=== PATIENT | male | born 1955 | race Caucasian/White ===

== ENCOUNTER → 2016-11-17 | Outpatient (CLI) | payer OTHER | DX: E78.2 Mixed hyperlipidemia (principal); Z12.5 Encounter for screening for malignant neoplasm of prostate ==

== ENCOUNTER 2017-05-04 08:03 | Outpatient (CLI) | payer OTHER | END 2017-05-04 08:04 | disposition home or self-care (01) | LOC: LAB.R 08:03 | PROVIDERS: ATTEND Internal Medicine | DX: E78.2 Mixed hyperlipidemia (principal) ==

== ENCOUNTER 2017-07-29 13:03 | Outpatient (CLI) | payer OTHER | END 2017-07-29 13:04 | disposition home or self-care (01) | LOC: LAB.R 13:03 | PROVIDERS: ATTEND Internal Medicine | DX: E78.2 Mixed hyperlipidemia (principal) ==

== ENCOUNTER 2017-12-14 08:00 | Outpatient (CLI) | payer OTHER ==
[2017-12-14 14:37] LABS: ALBUMIN 4.3 g/dL (3.2-5.5); ALBUMIN/GLOBULIN RATIO 1.5 (1.0-2.2); ALKALINE PHOSPHATASE 68 IU/L (42-121); ALT ALANINE AMINOTRANSFERASE 25 IU/L (10-60); AST ASPARTATE AMINOTRANSFERASE 26 IU/L (10-42); BILIRUBIN,TOTAL 1.3 mg/dL (0.2-1.0); BUN - BLOOD UREA NITROGEN 16 mg/dL (6-20); CALCIUM 9.1 mg/dL (8.5-10.3); CARBON DIOXIDE - CO2 25 mmol/L (21-32); CHLORIDE 99 mmol/L (101-111); CHOL/HDL RATIO 4.6 (<5.0); CHOLESTEROL 189 mg/dL; CREATININE 0.9 mg/dL (0.6-1.2); GFR - MDRD 85 (>89); GLUCOSE 99 mg/dL (70-100); HDL CHOLESTEROL 41 mg/dL; LDL CHOLESTEROL,CALCULATED 127 mg/dL; LDL/HDL RATIO 3.1 (<3.6); SODIUM 134 mmol/L (135-145); TOTAL PROTEIN 7.1 g/dL (6.7-8.2); VLDL CHOLESTEROL 21 mg/dL
== END 2017-12-14 08:01 | disposition home or self-care (01) ==
LOC: LAB.R 08:00
PROVIDERS: ATTEND Internal Medicine
DX: E78.2 Mixed hyperlipidemia (principal)
CPT/HCPCS: 80053; 80061; 83721; 84153

== ENCOUNTER 2019-05-04 10:34 | Outpatient (CLI) | payer MEDICARE, OTHER | END 2019-05-04 10:35 | disposition home or self-care (01) | LOC: LAB 10:34 | PROVIDERS: ATTEND Internal Medicine | DX: R05 Cough (principal); R50.9 Fever, unspecified | CPT/HCPCS: 36415; 87040 ==

== ENCOUNTER 2019-05-04 10:54 | Outpatient (CLI) | payer MEDICARE, OTHER ==
--- NOTE | 2019-05-04 16:06 | XRAY Report ---
Reason: FEVER, COUGH, R/O PNEUMONIA Procedure Date: 05/04/2019 Accession Number: [id number] / [id number] Procedure: XR - Chest 2 View X-Ray CPT Code: 79151 FULL RESULT: EXAM: CHEST RADIOGRAPHY. EXAM DATE: 05/04/2019 11:58 AM. CLINICAL HISTORY: Fever, cough, rule out pneumonia. COMPARISON: XR CHEST PA AND LAT 08/12/2007 12:36 PM. TECHNIQUE: 2 views. FINDINGS: Lungs/Pleura: No focal opacities evident. No pleural effusion. No pneumothorax. Normal volumes. Mediastinum: Heart and mediastinal contours are within normal limits for size and essentially stable compared to 2006. Other: None. IMPRESSION: No acute cardiopulmonary abnormality. RADIA
== END 2019-05-04 10:55 | disposition home or self-care (01) ==
LOC: DI 10:54
PROVIDERS: ATTEND Internal Medicine
DX: R05 Cough (principal); R50.9 Fever, unspecified
CPT/HCPCS: 36415; 71046; 87040

== ENCOUNTER 2021-01-30 06:30 | Day surgery (SDC) | payer MEDICARE, OTHER ==
[2021-01-30] MEDS ORDERED: LACTATED RINGERS 1,000 ML IV ONE ×2 (06:41→08:05)
[2021-01-30] MEDS ORDERED: MIDAZOLAM 2 MG/2 ML VIAL ONE ×2 (07:16→07:46)
[2021-01-30] MEDS ORDERED: fentaNYL 250 MCG/5 ML VIAL ONE (07:16)
[2021-01-30 08:18] VITALS: BP 113/90
== END 2021-01-30 06:31 | disposition home or self-care (01) ==
LOC: SDS 06:30
PROVIDERS: ATTEND Surgery
PROC: 0DBL8ZZ Excision of Transverse Colon, Via Natural or Artificial Opening Endoscopic (ICD-10-PCS; principal; 2021-01-30 07:30)
DX: Z12.11 Encounter for screening for malignant neoplasm of colon (principal); D12.3 Benign neoplasm of transverse colon; I10 Essential (primary) hypertension; K64.8 Other hemorrhoids
CPT/HCPCS: 45380; J3010; J7120

== ENCOUNTER 2022-01-07 16:02 | Outpatient (CLI) | payer MEDICARE, OTHER ==
--- NOTE | 2022-01-07 17:34 | XRAY Report ---
PROCEDURE: Foot 3 View LT INDICATIONS: LEFT FOOT PAIN TECHNIQUE: 3 views of the foot were acquired. COMPARISON: None. FINDINGS: Bones: No acute fractures or dislocations. No suspicious bony lesions. Mild degenerative changes a re seen in the first metatarsophalangeal joint. Soft tissues: No suspicious soft tissue calcification. IMPRESSION: No acute osseous abnormality. If symptoms persist or there is continued clinical concern, further kiara luation with MRI or CT may be helpful. Reviewed by: Charbel Graves MD on 01/07/2022 4:32 PM BRE Approved by: Charbel Graves MD on 01/07/2022 4:32 PM BRE Station ID: [id number]
== END 2022-01-07 16:03 | disposition home or self-care (01) ==
LOC: DI 16:02
PROVIDERS: ATTEND Internal Medicine
DX: M79.672 Pain in left foot (principal)

== ENCOUNTER 2023-12-13 17:39 | Emergency (ER) | payer MEDICARE, OTHER ==
[2023-12-13 17:47] VITALS: BP 140/90; O2SAT 98
--- NOTE | 2023-12-13 17:59 | ED Physician Documentation ---
History of Present Illness - Stated complaint Stated Complaint: LEFT LEG PX - Chief complaint Chief Complaint: Ext Problem - History obtained from History obtained from: Patient - Additonal information Additional information: Relatively healthy 68-year-old gentleman is got back from a prolonged trip to the [facility] and [facility]. Starting 6 days ago he developed some pain in the left calf with a sensation of swelling there. No history of DVT or PE. No chest pain or trouble breathing. PD PAST MEDICAL HISTORY - Past Medical History Past Medical History: Yes Cardiovascular: None Respiratory: None Endocrine/Autoimmune: None GI: Colon polyps : None HEENT: None Psych: None Musculoskeletal: None Derm: None - Past Surgical History Past Surgical History: No General: Colonoscopy - Present Medications Home Medications: Ambulatory Orders Medication Instructions Recorded Confirmed Doxycycline Hyclate [Doryx] 50 mg PO DAILY 01/30/21 01/30/21 - Allergies Allergies/Adverse Reactions: Allergies Allergy/AdvReac Type Severity Reaction Status Date / Time Penicillins Allergy Unknown Unknown Verified 12/13/23 19:36 - Social History Does the pt smoke?: No Smoking Status: Never smoker Does the pt drink ETOH?: No Does the pt have substance abuse?: No - Immunizations Immunizations are current?: Yes - POLST Patient has POLST: No PD ED PE NORMAL - Vitals Vital signs reviewed: Yes - General General: Alert and oriented X 3, No acute distress - Extremities Extremities: Other (Relatively symmetric calves without obvious swelling or edema, negative Homans' sign.) - Neuro Neuro: Alert and oriented X 3, Normal speech Results - Vitals Vitals: Vital Signs - 24 hr 12/13/23 17:42 Temperature 36.8 C Heart Rate 88 Respiratory 16 Rate Blood Pressure 140/90 H O2 Saturation 98 Oxygen O2 Source Room air - Rads (name of study) lle dvt sono Relevant Findings:: Prelim report reviewed PD Medical Decision Making - ED course ED course: 68-year-old gentleman with left leg pain after long plane flights. Of course the concern would be for DVT, but the exam is pretty unimpressive. Ultrasound done and suggestive of superficial vein thrombosis. We discussed anticoagulation but he would prefer conservative approach. Departure - Departure Disposition: 01 Home, Self Care Clinical Impression: Superficial thrombophlebitis Qualifiers: Superficial thrombophlebitis-Involved body area: lower extremity Laterality: left Qualified Code(s): I80.02 - Phlebitis and thrombophlebitis of superficial vessels of left lower extremity Condition: Good Record reviewed to determine appropriate education?: Yes Instructions: ED Phlebitis Superficial Comments: As discussed, no DVT is present. You do have a superficial vein thrombosis which I think it is fine to increase walking, take a baby aspirin a day and maybe use warm compresses. Return for new or worsening symptoms. Follow-up with your doctor in a week or 2 if not improved. Forms: PCP List
--- NOTE | 2023-12-13 20:38 | Ultrasound Report ---
PROCEDURE: Duplex Ext Veins Left INDICATIONS: pain TECHNIQUE: Real-time imaging, as well as color and pulse Doppler interrogation, were performed of the lower extr emity deep veins from the inguinal ligament to the popliteal fossa. Attempted visualization of the ca lf veins was performed. COMPARISON: None. FINDINGS: The deep veins are normally compressible, and free of intraluminal thrombus. Color and pu lse Doppler demonstrate normal phasic intraluminal flow. There is normal augmentation response to di stal compression maneuver. Thrombus in the vein near the left gastrocnemius. IMPRESSION: 1.No deep venous thrombosis of the visualized lower extremity. 2.Superficial thrombosis within a vein in the left gastrocnemius. Reviewed by: Wilian Marie MD on 12/13/2023 8:36 PM PST Approved by: Wilian Marie MD on 12/13/2023 8:36 PM PST Station ID: [id number]
== END 2023-12-13 19:56 | disposition home or self-care (01) ==
LOC: ED 17:39
DX: I80.02 Phlebitis and thrombophlebitis of superficial vessels of left lower extremity (principal)
CPT/HCPCS: 99283; 99284

== ENCOUNTER 2024-05-23 16:38 | Outpatient (CLI) | payer MEDICARE, OTHER ==
--- NOTE | 2024-05-24 15:01 | XRAY Report ---
PROCEDURE: Hand 3+V BL INDICATIONS: PAIN IN R HAND, JOINT PAIN IN L HAND TECHNIQUE: 3 views of the hand(s) acquired. COMPARISON: None. FINDINGS: Bones: No fractures or dislocations. Erosion/osteophytes of the distal interphalangeal joints of the second through fourth digits. Soft tissues: No radiographically evident soft tissue swelling IMPRESSION: Erosion/osteophytes of the distal interphalangeal joints of the second through fourth digits bilatera lly. No acute osseous abnormality. Reviewed by: Jacob Guerra MD on 05/24/2024 3:00 PM PDT Approved by: Jacob Guerra MD on 05/24/2024 3:00 PM PDT Station ID: [id number]
== END 2024-05-23 16:39 | disposition home or self-care (01) ==
LOC: DI 16:38
PROVIDERS: ATTEND Internal Medicine
DX: M25.742 Osteophyte, left hand (principal); M25.741 Osteophyte, right hand; M85.842 Other specified disorders of bone density and structure, left hand; M85.841 Other specified disorders of bone density and structure, right hand

== ENCOUNTER 2024-05-31 07:39 | Outpatient (CLI) | payer SELFPAY ==
--- NOTE | 2024-05-31 22:04 | CT Report ---
PROCEDURE: CT heart coronary calcium scoring without contrast TECHNIQUE: MDCT non-contrast cardiac gated images were obtained from the mariel through the inferior margin of the heart. Calcium score was obtained by post-processing with external software. Automated exposure control was used to reduce patient radiation dose. INDICATION: CAD screening, low or intermediate risk COMPARISON: None. FINDINGS: Image quality: Excellent Agatston method: Total calcium score: 160.4 L main: 44.8 LAD: 30.2 LCX: 28.5 RCA: 57 Heart findings: Mitral annular calcifications: No significant calcifications. Aortic valve: No significant valvular calcifications. Chambers: No significant enlargement on this non-dynamic study. Pericardium: No effusion. Other findings (note the chest is incompletely imaged on this limited non-contrast study): Lungs and pleura: No pleural effusion. No actionable lung nodules. Mediastinum: No pathologic lymphadenopathy. Upper abdomen: Partially seen, unremarkable. Bones: No acute or suspicious abnormality. IMPRESSION: Moderate coronary calcification Incidentals: None significant. Coronary artery calcium scores have been identified as an independent risk factor for future acute co ronary syndromes and correlate with the quantity of coronary atherosclerotic plaque. However, they do not correlate directly with the degree of stenosis. A low score does not exclude a significant coron vinny artery stenosis. Risk of future coronary events should be assessed with individual patient risk factors and medical hi story. Consider correlation with risk percentiles using the SHETH (Multi-Ethnic Study of Atheroscleros is) calculator. CAC-DRS Categories: A0: 0, very low risk, consider repeat coronary calcium study every 3-7 years for surveillance. A1: 1-99, mildly increased risk, consider moderate-intensity statin A2: 100-299: moderately increased risk, consider moderate to high-intensity statin + ASA 81mg A3: >300: moderately to severely increased risk, consider high-intensity statin + ASA 81mg Reviewed by: Joesph Casper MD on 05/31/2024 9:02 PM BRE Approved by: Joesph Casper MD on 05/31/2024 9:02 PM BRE Station ID: [id number]
== END 2024-05-31 07:40 | disposition home or self-care (01) ==
LOC: DI 07:39
PROVIDERS: ATTEND Internal Medicine
DX: I25.10 Atherosclerotic heart disease of native coronary artery without angina pectoris (principal); Z82.49 Family history of ischemic heart disease and other diseases of the circulatory system